=== PATIENT | male | born 1940 | race Caucasian/White ===

== ENCOUNTER 2022-04-17 05:48 | Day surgery (SDC) | payer OTHER ==
[~2022-04-17 05:48] MED LIST: AMLO5 PO; ATOR40TA PO; B-12500 MC2 PO; ELIQUIS5 M2 PO; EUTHYROX125 MCG PO; FAMO20 PO; HYDROCHLOROTH12.5 MG PO; Isosorbide Mono30 MG PO; MAGCHL64ER; METF500 PO; METO50 PO; POTA10T PO
--- NOTE | 2022-04-17 07:09 | NUR ---
PT TOLERATED LINQ IMPLANT WELL.
--- NOTE | 2022-04-17 07:30 | NUR ---
DISCHARGE INSTRUCTIONS REVIEWED ALL QUESTIONS ANSWERED. MID-CHEST LINQ SITE SOFT NON-TENDER WITH NO HEMATOMA,NO BLEEDING AND INTACT DRESSING.
== END 2022-04-17 23:12 | disposition home or self-care (01) ==
LOC: MHTC 05:48
DX: R55 Syncope and collapse (principal); I25.10 Atherosclerotic heart disease of native coronary artery without angina pectoris; Z95.1 Presence of aortocoronary bypass graft; I48.0 Paroxysmal atrial fibrillation; I10 Essential (primary) hypertension; E78.5 Hyperlipidemia, unspecified; E03.9 Hypothyroidism, unspecified; E11.9 Type 2 diabetes mellitus without complications; Z79.01 Long term (current) use of anticoagulants; Z79.84 Long term (current) use of oral hypoglycemic drugs; Z79.899 Other long term (current) drug therapy
CPT/HCPCS: 33285; C1764

== ENCOUNTER 2024-02-23 12:45 | Observation (INO) | payer OTHER ==
[~2024-02-23] VITALS: Ht 172.7 cm; Wt 79.5 kg
[2024-02-23 14:38] LABS: BASOPHILS ABSOLUTE AUTO 0.03 K/mm3 (0.00-0.23); BASOPHILS PERCENT AUTO 0 % (0-2); EOSINOPHILS ABSOLUTE AUTO 0.15 K/mm3 (0.00-0.68); EOSINOPHILS PERCENT AUTO 2 % (0-6); Hematocrit 38.3 % (37.0-53.0); Hemoglobin 13.1 g/dL (13.5-17.5); IMMATURE GRAN ABSOLUTE AUTO 0.02 K/mm3 (0.00-0.10); IMMATURE GRAN PERCENT AUTO 0 % (0-1); LYMPHOCYTES ABSOLUTE AUTO 2.84 K/mm3 (0.84-5.20); LYMPHOCYTES PERCENT AUTO 36 % (21-46); MONOCYTES ABSOLUTE AUTO 0.63 K/mm3 (0.16-1.47); MONOCYTES PERCENT AUTO 8 % (4-13); Mean Corpuscular HGB 32.2 pg (26.0-34.0); Mean Corpuscular HGB Conc 34.2 g/dL (31.5-36.5); Mean Corpuscular Volume 94 fL (80-100); Mean Platelet Volume 9.3 fL (9.1-12.4); NEUTROPHILS PERCENT AUTO 53 % (41-73); Platelet Count 194 K/mm3 (150-400); RDW Coefficient Variation 15.1 % (11.7-14.2); RDW Standard Deviation 52.4 fL (35.1-46.3); Red Blood Cell Count 4.07 M/mm3 (4.30-5.90); White Blood Cell Count 7.87 K/mm3 (4.00-11.30)
[2024-02-23 14:49] LABS: Albumin, Blood 3.9 g/dL (3.4-5.0); Albumin/Globulin Ratio 1.1 (0.8-1.8); Bilirubin, Total 0.9 mg/dL (0.1-1.0); Bun/Creatinine Ratio 22.4 (12.0-20.0); Calcium, Blood 9.5 mg/dL (8.5-10.1); Creatinine, Blood 1.07 mg/dL (0.60-1.20); Globulin, Blood 3.7 g/dL (2.2-4.0); Potassium, Blood 3.1 mmol/L (3.5-5.5); Total Protein, Blood 7.6 g/dL (6.4-8.2)
[2024-02-23] MEDS ORDERED: Potassium Chloride 20 MEQ TabCR PO ONE (15:55)
[2024-02-23] MEDS ORDERED: Acetaminophen 325 MG TABLET PO PRN (18:15)
[2024-02-23] MEDS ORDERED: Ondansetron HCl 2 MG / ML 2ML Vial IV PRN (18:15)
[2024-02-23 18:19] VITALS: BP 116/73
[2024-02-23 19:29] VITALS: BP 113/62
[2024-02-23] MEDS ORDERED: Apixaban 5 MG Tab PO SCH (21:00)
[2024-02-24] VITALS (7 sets, daily range): BP systolic 103–132; BP diastolic 57–67
--- NOTE | 2024-02-24 05:05 | NUR ---
PATTIENT SLEPT IN LONG INTERVALS, USING HIS HOME CPAP. WITH O2 4 L/BLEED IN. UP TO THE BR NO DIZZINESS OBSERVED. TELE WAS SB 57, BUT TELE DID LET ME KNOW HE HAD 4 BEATS VT. THAT HAPPENED IN ER FOR 5 BEATS PER NIKITA IN TELE.
[2024-02-24 06:29] LABS: Bun/Creatinine Ratio 22.7 (12.0-20.0); Calcium, Blood 9.1 mg/dL (8.5-10.1); Creatinine, Blood 1.1 mg/dL (0.60-1.20); Magnesium, Blood 1.5 mg/dL (1.6-2.4); Potassium, Blood 3.6 mmol/L (3.5-5.5)
[2024-02-24] MEDS ORDERED: Insulin Human Lispro 100 Units/ML 3ML Syringe SC SCH (07:30)
[2024-02-24] MEDS ORDERED: Potassium Chloride 20 MEQ TabCR PO ONE (08:05)
[2024-02-24] MEDS ORDERED: Mag Sulfate 1 GM/D5% 100ML 100 ML IV STA (08:07)
--- NOTE | 2024-02-24 18:31 | NUR ---
SHIFT SUMMARY: PT IS A/O X 4, IND IN ROOM, PLEASANT AND COOPERATIVE WITH CARE. PT HAD NO REPORTS OF V-TACH FROM TELE. LOOP RECORDER INTEROGATED THIS MORNING. NO COMPLAINTS OF CHEST PAIN/PRESSURE THROUGH THE DAY. PT HR BRADICARDIC IN 50'S. MRI FORM COMPLETED BY PT AND SENT TO MRI. PT DID REPORT HE DOES NOT CHECK BP PRIOR TO TAKING HIS HOME BLOOD PRESSURE MEDICATIONS. EDUCATED PT ON IMPORTANCE OF CHECKING BP AND PARAMETERS PRIOR TO TAKING MEDICATIONS. PT VU. MD AWARE. ORTHO VITALS TAKEN AND REPORTED TO .
[2024-02-25 04:40] VITALS: BP 106/62
[2024-02-25 04:42] VITALS: BP 114/71
[2024-02-25 04:44] VITALS: BP 113/94
--- NOTE | 2024-02-25 05:16 | NUR ---
SHIFT SUMMARY - NO ACUTE CHANGES THROUGHOUT THE NIGHT. PT IS SCHEDULED FOR AN MRI TODAY. REPORTED TO ORIENTATION AND MOBILITY INSTRUCTOR THAT PT HAS ORTHOSTATICS ORDERED. PT IS ANTICIPATING DISCHARGE HOME TODAY. PT HAS BEEN PLEASANT AND COOPERATIVE WITH CARE. CPAP IN PLACE WITH CONTINUOUS BIOX ON FOR APPX 8 HOURS TONIGHT - SATS WNL. FLUIDS AT BEDSIDE. CALL LIGHT WITHIN REACH. BED IN LOW POSITION.
[2024-02-25 07:23] VITALS: BP 124/65
--- NOTE | 2024-02-25 14:09 | NUR ---
DISCHARGE SUMMARY: PT DISCHARGED THIS MORNING TO HOME WITH . PT AND EDUCATED ON DISCHARGE PLAN, MEDICATIONS. DISCUSSED HOW TO TAKE BP AND DOCUMENT. PROVIDED BP LOG AND REQUESTED PT TO TAKE TO APPT WITH PROVIDER. PT V/U REGARDING STOPPING HIS BP MEDICATIONS. ADVISED PT TO CALL PROVIDER IF SBP IS GREATER THAN 150. PT ASSISTED WITH PACKING UP HIS BELONGINGS. PT ESCORTED TO POV VIA WC.
== END 2024-02-25 10:45 | disposition home or self-care (01) ==
LOC: ER 12:45 → MEDS 12:46 → ENPENDDIS 02-25 09:19 → MEDS 02-25 10:45
PROVIDERS: Nurse Practitioner Acute Care; Student in an Organized Health Care Education/Training Program; ADMIT Internal Medicine
DX: I48.0 Paroxysmal atrial fibrillation (principal); I25.10 Atherosclerotic heart disease of native coronary artery without angina pectoris; I10 Essential (primary) hypertension; E78.5 Hyperlipidemia, unspecified; E03.9 Hypothyroidism, unspecified; J84.10 Pulmonary fibrosis, unspecified; K21.9 Gastro-esophageal reflux disease without esophagitis; Z79.899 Other long term (current) drug therapy; Z79.84 Long term (current) use of oral hypoglycemic drugs; Z79.01 Long term (current) use of anticoagulants; Z95.1 Presence of aortocoronary bypass graft
CPT/HCPCS: 36415; 70450; 71046; 72125; 80048; 80053; 82947; 83735; 84443; 84484; 85025; 93005; 93010; 94762; 96365; 99285-25; A9270; G0378; J3475

== ENCOUNTER 2024-06-21 05:54 | Day surgery (SDC) | payer OTHER ==
[~2024-06-21] VITALS: Ht 172.7 cm; Wt 77.0 kg
[~2024-06-21 05:54] MED LIST changes: +ERGO400; +HYDCHL25 PO
[2024-06-21 06:33] VITALS: BP 130/88
[2024-06-21] MEDS ORDERED: Lidocaine 2%-Epineph 1:100000 20 ML MDV ONE (06:39)
[2024-06-21 07:42] VITALS: BP 135/89
--- NOTE | 2024-06-21 08:00 | NUR ---
PT AND VERBALIZED UNDEDRSTANDING OF WRITTEN AND VERBAL D/C INST. PT TAKEN OUT OF THE HRT CENTER VIA W/C.
== END 2024-06-21 22:56 | disposition home or self-care (01) ==
LOC: MHTC 05:54
DX: Z45.09 Encounter for adjustment and management of other cardiac device (principal); I49.5 Sick sinus syndrome; I48.0 Paroxysmal atrial fibrillation; I25.708 Atherosclerosis of coronary artery bypass graft(s), unspecified, with other forms of angina pectoris; I48.91 Unspecified atrial fibrillation
CPT/HCPCS: 33286